=== PATIENT | male | born 1985 | race Caucasian/White ===

== ENCOUNTER 2023-07-13 16:38 | Emergency (ER) | payer OTHER, BC, SELFPAY ==
[2023-07-13 16:47] VITALS: BP 141/85; PULSE 103; RESP 16; TEMP 36.6; O2SAT 96; BMI 26.6
[2023-07-13] MEDS: ADACEL DIPH,PERTUSS(ACELL),TET VAC/PF 0.5 ML ADULT SYRINGE IM (17:08)
[2023-07-13] MEDS: LIDOCAINE HCL 1% 100 MG/10 ML MDV INJ (17:11)
--- NOTE | 2023-07-13 17:15 | PC.NURSE ---
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 patient states that he already went to occupational health and had testing done, pt finishing filling out paperwork at this time. patient has small laceration to left thumb that is soaking in hibicleanse and water. pt tetanus shot updated and physician at bedside suturing patient at this time
--- NOTE | 2023-07-13 17:23 | ED_ITS ---
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 General: Well-appearing and in no apparent distress. Skin: Warm, dry, no pallor noted. No rash. Head: Normocephalic, atraumatic. Neck: Supple, non-tender. Eye: Pupils are equal, round and EOMI. No scleral icterus. Ears, Nose, Mouth, and Throat: TM are clear, no nasal mucosal hypertrophy. Oral mucosa is moist, no posterior oropharynx erythema, uvula is mid-line Cardiovascular: Regular Rate and Rhythm without murmur, gallop or rub. Respiratory: No accessory muscle use or respiratory distress. Lungs are clear to auscultation, no wheezing, rales or rhonchi Chest Wall: no tenderness Back: No midline thoracic or lumbar vertebral tenderness. No CVA tenderness Musculoskeletal: normal ROM, no calf or popliteal tenderness, no lower extremity edema/swelling. There is a linear longitudinal laceration at the distal interphalangeal joint no exposure of the underlying structures but the wound is going through the dermis and epidermis measuring almost 1 cm, normal capillary refill GI: Abdomen is soft, non-distended. Normal bowel sounds. No masses appreciated. No tenderness to palpation. No rebound, guarding, or rigidity noted. Neurological: A&O x4. No cranial nerve dysfunction observed. No truncal ataxia. Moves all extremities. Sensation intact. Psychiatric: Cooperative and interactive. Normal mood and affect. Constitutional Vital Signs, click to edit/add: Last Vital Signs Temp 97.8 F 07/13/23 16:47 Pulse 103 H 07/13/23 16:47 Resp 16 07/13/23 16:47 BP 141/85 07/13/23 16:47 Pulse Ox 96 07/13/23 16:47 O2 Del Method Room Air 07/13/23 16:47 Course Vital Signs Vital signs: Vital Signs Temperature 97.8 F 07/13/23 16:47 Pulse Rate 103 H 07/13/23 16:47 Respiratory Rate 16 07/13/23 16:47 Blood Pressure 141/85 07/13/23 16:47 Pulse Oximetry 96 07/13/23 16:47 Oxygen Delivery Method Room Air 07/13/23 16:47 Temperature 97.8 F 07/13/23 16:47 Pulse Rate 103 H 07/13/23 16:47 Respiratory Rate 16 07/13/23 16:47 Blood Pressure 141/85 07/13/23 16:47 Pulse Oximetry 96 07/13/23 16:47 Oxygen Delivery Method Room Air 07/13/23 16:47 MDM - Skin/Abscess/Foreign Bdy MDM Narrative Medical decision making narrative: After cleaning the area thoroughly the patient had the infiltration of the area with 1% lidocaine almost 1 to 2 cc of lidocaine The patient also had 3 stitches of the 4-0 Ethilon Then the patient had a splint applied and discharged home with wound instruction for care at home and the he is to follow-up with occupational health as outpatient The patient is to keep the splint at least for 2 to 3 days then start using his finger after that normally but keeping the clean and dry wound for the next 7 days The patient referred to occupational health Discharge Plan Discharge Chief Complaint: Skin/Abscess/Foreign Body Clinical Impression: Laceration of thumb Patient Disposition: Home, Self-Care Time of Disposition Decision: 17:21 Condition: Good Instructions: Finger Laceration (ED) Stand Alone Forms: Portal Instructions Referrals[facility] [Outside] - As soon as possible BARRETT ZHANG [Primary Care Provider] - 1 week
== END 2023-07-13 17:38 | disposition home or self-care (01) ==
PROVIDERS: Emergency Provider Emergency Medicine; PCP Family Medicine
DX: S61.012A Laceration without foreign body of left thumb without damage to nail, initial encounter (principal); Z23 Encounter for immunization; W26.8XXA Contact with other sharp object(s), not elsewhere classified, initial encounter
CPT/HCPCS: 12001; 90471; 90715; 99284